=== PATIENT | male | born 1955 | race Caucasian/White ===

== ENCOUNTER 2023-11-07 16:59 | Observation (INO) | payer MEDICARE, SELFPAY ==
[2023-11-07] VITALS (10 sets, daily range): BP systolic 114–163; BP diastolic 71–121; PULSE 74–101; RESP 15–18; TEMP 36.1–36.7; O2SAT 93–98; BMI 34.8; BMI 34.7
--- NOTE | 2023-11-07 17:14 | EKG12_ITS ---
Test Reason : Blood Pressure : / mmHG Vent. Rate : 096 BPM Atrial Rate : 096 BPM P-R Int : 144 ms QRS Dur : 100 ms QT Int : 370 ms P-R-T Axes : 067 046 059 degrees QTc Int : 467 ms Normal sinus rhythm Normal ECG Confirmed by MARK CABALLERO MD ([id number]), photograph editor DAVID SOUZA ([id number]) on 11/10/2023 1:55:09 PM Referred By: Confirmed By:MARK CABALLERO MD
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
[2023-11-07] MEDS: 0.9% Normal Saline (1000mL) 1,000 ML 999 ML IV (17:43)
--- NOTE | 2023-11-07 18:19 | ED.RN ---
PT PRESENTED TO ED WITH TRANSPORT FROM [facility]. PT LIVES AT HOME AND SAYS HIS DAUGHTER COMES TO CHECK ON HIM DAILY. PT HAS BEEN SITTING IN HIS CHAIR FOR AT LEAST A WEEK IN HIS OWN FECES. GROIN AREA HAS MULTIPLES LESIONS WITH SKIN BREAKDOWN. PT HAD ASHES FROM HIS CIGARETTES ALL OVER HIS CHEST. PT HAS NOT BEEN PROPERLY CARING FOR HIMSELF AT HOME. PT STATES THAT HE IS FINE AT HOME AND DOES NOT THINK HE IS BAD OFF. PT ADVISED HE WILL BE ADMITTED AND NEEDS TO SPEAK WITH [facility]IST. WHILE ADMITTED THEY CAN DO PT FOR HIS LEG STRENGTH AND PLAN OF CARE FOR D/C. PT SAYS HE IS NOT ON ANY MEDS. WHEN ASKED IF HE WAS TAKING PREVIOUS MEDS AND JUST STOPPED, HE SAID HE USED TO TAKE BP MEDS. PT APPEARS CONFUSED AND IN DENIAL OF HIS STATE OF HEALTH AND WELLBEING.
[2023-11-07 18:35] LABS: Absolute Lymphocyte Count 1.47 X10^3/uL (0.83-4.51); Absolute Neutrophil Count 7.8 X10^3/uL (2.0-7.7); Basophil# 0.04 X10^3/uL; Basophil% 0.4 % (0-1); Eosinophil# 0.27 X10^3/uL; Eosinophils% 2.6 % (0-5); Hematocrit 49.4 % (40-54); Hemoglobin 16.5 g/dL (13.0-16.5); Lymphocyte # 1.47 X10^3/ul (0.83-4.51); Lymphocyte % 14.3 % (19-41); Mean Corp Hgb Conc 33.4 g/dL (32-36); Mean Corpuscular Hgb 30.3 pg (27.0-32.0); Mean Corpuscular Volume 90.6 fL (80-94); Mean Platelet Vol. 10.8 fl (6.2-12.0); Monocyte# 0.73 X10^3/uL; Monocyte% 7.1 % (0-10); NRBC Flagged by Analyzer 0 % (0-5); Neutrophil # 7.76 X10^3/uL (2.7-7.7); Neutrophil % 75.2 % (47-70); Platelet Count 298 K/mm3 (150-450); RBC Distribution Width CV 13.6 % (11.6-14.6); Red Blood Count 5.45 M/mm3 (4.6-6.2); White Blood Count 10.3 K/mm3 (4.4-11.0)
[2023-11-07 18:51] LABS: ALB/GLOB Ratio 0.9 RATIO (0.9-2.4); AST(SGOT) 23 U/L (15-37); Alanine Aminotransfer ALT/SGPT 32 U/L (16-61); Albumin, Serum 3.2 g/dL (3.2-5.0); Alkaline Phosphatase 74 U/L (45-117); Anion Gap 5 (5-15); BUN 17 mg/dL (7-18); BUN/Creat Ratio 28.1 RATIO (10-20); CPK Total, Creatine Kinase 123 U/L (39-308); Calcium,Total 9.2 mg/dL (8.5-10.1); Chloride 104 mmol/L (98-107); EST Glomerular Filtration Rate 141 mL/min (>60); Est Glom Filt Rate - Afr Amer 170 mL/min (>60); Estimated Creatinine Clearance 113.13 ml/min; Globulin 3.7 g/dL (2.2-4.2); Glucose 107 mg/dL (74-106); Lipase 27 U/L (13-75); Potassium 3.8 mmol/L (3.5-5.1); Protein, Total 6.9 g/dL (6.4-8.2); Sodium Level 138 mmol/L (136-145); Troponin-I HS 7 pg/mL (3.0-78.0)
[2023-11-07 18:53] LABS: Lactic Acid 1.5 mmol/L (0.4-1.9)
--- NOTE | 2023-11-07 19:25 | RAD_ITS ---
INDICATION: cough EXAMINATION/TECHNIQUE: X-RAY - XR Chest 1 View AP portable. 7:13 PM COMPARISON: No relevant prior comparison study available FINDINGS: LINES/DEVICES: None. LUNGS: No consolidation. No pneumothorax. MEDIASTINUM: Unremarkable. CARDIAC SILHOUETTE: Not enlarged. BONES AND SOFT TISSUES: No acute abnormalities. RAD/Chest 1 View (Portable) IMPRESSION: No evidence of active intrathoracic disease. Electronically Signed: Karen Cortez MD at 20:35 EDT ,
--- NOTE | 2023-11-07 19:30 | CT_ITS ---
INDICATION: weakness EXAMINATION: CT BRAIN - CT Head or Brain W/O Contrast Injection TECHNIQUE: Multiple axial images were obtained of the head without intravenous contrast. The protocol utilizes one or more of the following dose reduction techniques: automated exposure control, adjustment of mA and/or kV according to patient size,and/or use of iterative reconstruction technique. IV Contrast dosage and agent: None. RADIATION DOSAGE (If Supplied By Facility): CTDIvol = ( 44.99 ) mGy, DLP = ( 829.85 ) mGycm COMPARISON: No relevant prior comparison study available FINDINGS: BRAIN: No acute bleed. No edema. Rivera-white matter differentiation is maintained. VENTRICLES AND SULCI: Not dilated. EXTRA-AXIAL: No hemorrhage, fluid collection, or mass. CALVARIUM / SKULL BASE: Unremarkable. FACE/SINUSES: Unremarkable. SOFT TISSUES: Unremarkable. CT/Brain/Head without Contrast IMPRESSION: No acute abnormality. CT angiogram and/or MRI may be helpful to evaluate for acute infarct as clinically indicated. Electronically Signed: Karen Cortez MD at 20:19 EDT ,
[2023-11-07 20:06] LABS: Mucous, Urine 0 SEEN /hpf (<or=2+); Squamous Epithelial Cells - UA 0 SEEN /hpf (0-5); White Blood Cells 0 SEEN /hpf (0-5)
[2023-11-07 20:18] LABS: Color, Urine Straw (Yellow); Glucose, Dipstick Normal (Normal); Ketone-Dipstick 50 mg/dl (Negative); Leukocyte Esterase-Dipstick Negative /ul (Negative); Nitrite-Dipstick Negative (Negative); Occult Blood-Urine 10 /ul (Negative); Protein-Dipstick Negative (Negative); Specific Gravity, Urine 1.015 (1.002-1.030); Urine Bilirubin Dipstick Negative (Negative); Urine Clarity Clear (Clear); Urine Urobilinogen Normal (Normal)
[2023-11-07 20:37] LABS: Red Blood Cells-Urine 0-5 SEEN /hpf (0-5)
[2023-11-07 20:38] LABS: Bacteria RARE /hpf (None Seen)
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
[2023-11-07] MEDS: 0.9% Normal Saline (1000mL) 1,000 ML 70 ML IV (21:56)
[2023-11-07] MEDS: Nystatin Powder 15gm Bottle 1 APPLIC TOPICAL (23:28)
[2023-11-08] VITALS (8 sets, daily range): BP systolic 95–146; BP diastolic 55–82; PULSE 83–92; RESP 16–18; TEMP 36.3–37.2; O2SAT 91–96; BMI 34.7
[2023-11-08] MEDS: Menthol/Lanolin/Calamine/Znox 113 GM Tube 1 APPLIC TOPICAL ×3 (01:22→21:32)
[2023-11-08] MEDS: Nicotine Polacrilex 2 MG GUM PO ×4 (01:23→22:30)
[2023-11-08] MEDS: Nystatin Powder 15gm Bottle 1 APPLIC TOPICAL ×3 (05:21→21:32)
[2023-11-08] MEDS: Acetaminophen 325 MG Tablet 650 MG PO ×2 (05:25→21:32)
[2023-11-08 05:58] LABS: Absolute Lymphocyte Count 1.57 X10^3/uL (0.83-4.51); Basophil# 0.05 X10^3/uL; Basophil% 0.5 % (0-1); Eosinophil# 0.42 X10^3/uL; Eosinophils% 4.1 % (0-5); Hematocrit 48.8 % (40-54); Lymphocyte # 1.57 X10^3/ul (0.83-4.51); Lymphocyte % 15.4 % (19-41); Mean Corp Hgb Conc 32.8 g/dL (32-36); Mean Corpuscular Hgb 29.5 pg (27.0-32.0); Mean Corpuscular Volume 89.9 fL (80-94); Mean Platelet Vol. 10.7 fl (6.2-12.0); Monocyte# 1.15 X10^3/uL; Monocyte% 11.3 % (0-10); NRBC Flagged by Analyzer 0 % (0-5); Neutrophil # 6.95 X10^3/uL (2.7-7.7); Neutrophil % 68.3 % (47-70); Platelet Count 272 K/mm3 (150-450); RBC Distribution Width CV 13.7 % (11.6-14.6); RBC Distribution Width SD 44.9 fl (35.1-43.9); Red Blood Count 5.43 M/mm3 (4.6-6.2); White Blood Count 10.2 K/mm3 (4.4-11.0)
[2023-11-08 06:34] LABS: ALB/GLOB Ratio 0.9 RATIO (0.9-2.4); AST(SGOT) 24 U/L (15-37); Alanine Aminotransfer ALT/SGPT 27 U/L (16-61); Albumin, Serum 3.2 g/dL (3.2-5.0); Alkaline Phosphatase 66 U/L (45-117); Anion Gap 6 (5-15); BUN 13 mg/dL (7-18); Calcium,Total 9.1 mg/dL (8.5-10.1); Chloride 107 mmol/L (98-107); Creatinine, Serum 0.46 mg/dL (0.70-1.30); EST Glomerular Filtration Rate 191 mL/min (>60); Est Glom Filt Rate - Afr Amer 231 mL/min (>60); Estimated Creatinine Clearance 109.59 ml/min; Globulin 3.4 g/dL (2.2-4.2); Glucose 106 mg/dL (74-106); Phosphorus 3.2 mg/dL (2.5-4.9); Potassium 3.6 mmol/L (3.5-5.1); Protein, Total 6.6 g/dL (6.4-8.2); Sodium Level 137 mmol/L (136-145)
[2023-11-08] MEDS: Enoxaparin 40 MG/0.4 ML Syringe SC (08:15)
[2023-11-08] MEDS: 0.9% Normal Saline (1000mL) 1,000 ML 70 ML IV (12:09)
--- NOTE | 2023-11-08 16:48 | CT_ITS ---
STUDY: CT LUMBAR SPINE WITHOUT CONTRAST REASON FOR EXAM: Male, 68 years old. CAN''T MOVE LEGS TECHNIQUE: The patient was scanned in a multi detector CT scanner. High resolution transaxial imaging was performed. Images were obtained from T12 to S1. Sagittal and coronal images were reconstructed. Individualized dose optimization techniques were used for this CT. COMPARISON: None FINDINGS: Normal lumbar lordosis. There is no substantial scoliosis. Normal vertebrae of the lumbar spine. Possible fracture of the T10 spinous process. L1-2: There is bilateral facet arthropathy. Loss of intervertebral disc height. There is endplate spondylosis of the vertebral body. Unremarkable central canal. Unremarkable intervertebral neuroforamina. L2-3: There is bilateral facet arthropathy. Loss of intervertebral disc height. There is endplate spondylosis of the vertebral body. Posterior disc bulge causing mild narrowing of the central canal. Unremarkable intervertebral neuroforamina. L3-4: There is bilateral facet arthropathy. Loss of intervertebral disc height. There is endplate spondylosis of the vertebral body. Posterior disc bulge osteophyte complex causing severe narrowing of the central canal. Unremarkable intervertebral neuroforamina. Narrowing of the right lateral recess. L4-5: There is bilateral facet arthropathy. Loss of intervertebral disc height. There is endplate spondylosis of the vertebral body. Posterior disc bulge causing severe narrowing of the central canal. Narrowing of the intervertebral neuroforamina. L5-S1: There is bilateral facet arthropathy. Loss of intervertebral disc height. There is endplate spondylosis of the vertebral body. Unremarkable central canal. Narrowing of the intervertebral neuroforamina. Normal visualized paraspinous soft tissue structures. CT/Spine Lumbar without Contrast IMPRESSION: (NOT LISTED IN ORDER OF SIGNIFICANCE) Multilevel degenerative changes, as described above. Severe narrowing of the spinal canal at L3-4 and L4-5. Possible fracture of the T10 spinous process. Electronically Signed: Elio Mccabe MD at 18:00 EDT ,
--- NOTE | 2023-11-08 16:57 | PCM.PN.HOSP ---
Reason for Visit Reason for Visit: Weakness Subjective Subjective Patient states that progressively over the last several days prior to presentation he was developing some numbness in his left leg that was intermittent and weakness. He was indicating that if somebody moved his legs around and got them warmed up he was able to move more independently but it has been progressive loss. I did recommend we perform an MRI with and without contrast of his lumbar spine to rule out any pathology that could be causing this however the patient adamantly declined stating that he would not be able to tolerate lying still in the scanner. He did agree to a CT of his lumbar spine but we did explain that this is not optimal. Objective Data Objective Data Vital Signs: Vital Signs Temp Pulse Resp BP Pulse Ox O2 Del Method O2 Flow Rate 99.0 F 86 18 121/55 H 95 Nasal Cannula 2 11/08/23 14:01 11/08/23 14:01 11/08/23 14:01 11/08/23 14:01 11/08/23 14:01 11/08/23 14:01 11/08/23 14:01 Oxygen Flow Rate (L/min) 2 Oxygen Delivery Method Nasal Cannula Weight: 109.679 kg Body Mass Index (BMI) 34.7 Intake & Output: Intake and Output for Last 24 Hours 11/06/23 11/07/23 11/08/23 23:59 23:59 23:59 Intake Total 1000 / 1300 1695.17 / 1695.17 Output Total 400 / 400 Balance 1000 / 1300 1295.17 / 1295.17 Lab / Micro Data 11/08/23 05:28 11/08/23 05:28 Labs: Laboratory Results - last 24 hr 11/07/23 18:10: WBC 10.3, RBC 5.45, Hgb 16.5, Hct 49.4, MCV 90.6, MCH 30.3, MCHC 33.4, RDW Std Deviation 45.0 H, RDW Coeff of Annamarie 13.6, Plt Count 298, MPV 10.8, Immature Gran % (Auto) 0.400, Neut % (Auto) 75.2 H, Lymph % (Auto) 14.3 L, [place]arro % (Auto) 7.1, Eos % (Auto) 2.6, Baso % (Auto) 0.4, Absolute Neuts (auto) 7.8 H, Absolute Lymphs (auto) 1.47, Nucleated RBC % 0, Sodium 138, Potassium 3.8, Chloride 104, Carbon Dioxide 30.0, Anion Gap 5, BUN 17, Creatinine 0.60 L, Estim Creat Clear Calc 113.13, Est GFR (MDRD) Af Amer 170, Est GFR (MDRD) Non-Af 141, BUN/Creatinine Ratio 28.1 H, Glucose 107 H, Lactic Acid 1.5, Calcium 9.2, Total Bilirubin 0.50, AST 23, ALT 32, Alkaline Phosphatase 74, Total Creatine Kinase 123, Troponin I High Sens 7, Total Protein 6.9, Albumin 3.2, Globulin 3.7, Albumin/Globulin Ratio 0.9, Lipase 27, TSH 2.550 11/07/23 19:57: Urine Color Straw, Urine Clarity Clear, Urine pH 6.0, Ur Specific [place] 1.015, Urine Protein Negative, Urine Glucose (UA) Normal, Urine Ketones 50 H, Urine Occult Blood 10 H, Urine Nitrite Negative, Urine Bilirubin Negative, Urine Urobilinogen Normal, Ur Leukocyte Esterase Negative, Urine RBC 0-5 SEEN, Urine WBC 0 SEEN, Ur Squamous Epith Cells 0 SEEN, Urine Bacteria RARE, Urine Mucus 0 SEEN 11/08/23 05:28: WBC 10.2, RBC 5.43, Hgb 16.0, Hct 48.8, MCV 89.9, MCH 29.5, MCHC 32.8, RDW Std Deviation 44.9 H, RDW Coeff of Annamarie 13.7, Plt Count 272, MPV 10.7, Immature Gran % (Auto) 0.400, Neut % (Auto) 68.3, Lymph % (Auto) 15.4 L, Navarro % (Auto) 11.3 H, Eos % (Auto) 4.1, Baso % (Auto) 0.5, Absolute Neuts (auto) 7.0, Absolute Lymphs (auto) 1.57, Nucleated RBC % 0, Sodium 137, Potassium 3.6, Chloride 107, Carbon Dioxide 24.0, Anion Gap 6, BUN 13, Creatinine 0.46 L, Estim Creat Clear Calc 109.59, Est GFR (MDRD) Af Amer 231, Est GFR (MDRD) Non-Af 191, BUN/Creatinine Ratio 28.0 H, Glucose 106, Calcium 9.1, Phosphorus 3.2, Magnesium 2.0, Total Bilirubin 0.50, AST 24, ALT 27, Alkaline Phosphatase 66, Total Protein 6.6, Albumin 3.2, Globulin 3.4, Albumin/Globulin Ratio 0.9 Micro: Microbiology 11/07/23 18:10 Mucosa - Nose SARS-CoV-2, Influenza & RSV (PCR) - Final Radiography Diagnostic Testing: Radiology Impression Chest X-Ray 11/07/23 19:25 IMPRESSION: No evidence of active intrathoracic disease. Electronically Signed: Karen Cortez MD at 20:35 EDT , Brain CT 11/07/23 19:30 IMPRESSION: No acute abnormality. CT angiogram and/or MRI may be helpful to evaluate for acute infarct as clinically indicated. Electronically Signed: Karen Cortez MD at 20:19 EDT , Physical Exam Const alert, oriented x3, no apparent distress and well nourished; Negative for average body habitus or healthy appearing Constitutional Narrative: Obese, upper middle-aged, somewhat disheveled, white male, sitting up in bed, currently appears comfortable, watching television, does not appear toxic, older than stated age HEENT head/scalp atraumatic and moist oral mucous membranes HEENT Narrative: Dentition is poor, Mallampati is 3, no thrush Head and Scalp: normocephalic Resp normal respiratory effort, no retractions and no use of accessory muscles Resp Narrative: Diffusely diminished with few scattered end expiratory wheezes but otherwise clear Auscultation: wheezes; Negative for rales or rhonchi Cardio regular rate, regular rhythm, S1 normal heart sound, S2 normal heart sound, no murmurs, no rub, no gallops and no clicks GI normal to inspection, nondistended, normoactive bowel sounds, soft to palpation and non-tender GI Narrative: Large protuberant abdomen Extremity no clubbing, cyanosis or edema Neuro oriented x3 Neuro Narrative: Difficulty moving lower extremities bilaterally, patellar reflexes are 2+ bilaterally, sensation is normal bilateral lower extremities Speech: speech normal Psych affect normal Psych Narrative: Very pleasant, interacts appropriately Assessment & Plan Assessment/Plan (1) Ambulatory dysfunction: (2) Lower extremity weakness: (3) Paresthesias: PLAN: Plan Lower extremity weakness and paresthesias with the inability ambulate -Recommend an MRI stat be performed however patient declined and stated he was not able to lie in the scanner -Patient aware that this is the test of choice for diagnosing lumbar pathology but states that he still will not be able to do it -Is agreeable to set CT of his lumbar spine which we subsequently ordered -PT/OT consultation -Check B12 and folate -Ultimately will need placement will consult social work/case management for assistance with discharge planning -Patient will require pre-CERT prior to discharge Stage I pressure ulcer -Wound care consultation -Try to optimize nutrition Hypoxia -Unclear if this is acute or chronic -Patient does not wear supplemental oxygen at home but also does not see a doctor -Does smoke so may have COPD -Add DuoNebs -As needed albuterol -Continue I-S and Acapella -Patient will need outpatient pulmonary follow-up after discharge Intertriginous ameya -Continue nystatin powder Tobacco abuse -Smokes about 1 pack of cigarettes daily -Encouraged cessation -Patient is using nicotine gum Osteoarthritis -Continue as needed Tylenol Obesity -BMI 34.7 -Recommend weight loss -Complicates treatment, prognosis, outcomes CODE STATUS -Full code Charges/Coding Visit Charges Inpatient E&M: 60126 Subs Hosp L2
--- NOTE | 2023-11-08 18:58 | PCM.HOSP.N ---
Hospitalist Note CT shows severe narrowing in central canal of lumbar spine. Consult ortho spine.
--- NOTE | 2023-11-08 19:14 | PCM.HOSP.N ---
Hospitalist Note Talked to Dr. Echevarria who will see him in consult tomorrow afternoon. He said it is imperative to get MRI now and would like Lumbar and cervical without contrast. Since pt unable to tolerate he suggested that we have it done with anesthesia. Okay to do tomorrow per discussion with Dr. Echevarria. Orders placed for stat MRI tomorrow am and requested sedation via anesthesia in comments text.
[2023-11-08] MEDS: Ipratropium/Albuterol Sulfate 3 ML AMPUL.NEB INHALATION (19:41)
--- NOTE | 2023-11-08 21:18 | PCM.HOSP.N ---
Hospitalist Note Saw patient at bedside this evening to discuss CT lumbar spine findings and further evaluate him. Patient noted that he tolerated the CT scan without issue and feels similar to earlier today. He continues to have some bilateral lower extremity weakness. On discussion about bowel and bladder incontinence, he reports some difficulty with controlling his bowels over the past few weeks but states that he has had good sensation in the area. He does report some urinary incontinence but states this has been going on for months to years and he attributes this to prostate issues. He denies any pain or discomfort in the low back or perineal area. On exam, patient does have some hyperreflexia noted in the right knee. Negative clonus in the feet bilaterally. He is able to move both legs but has significant difficulty with lifting either leg off the bed. He denies any sensory changes in the legs bilaterally. Noted to him that we talked with Dr. Echevarria with orthopedic spine surgery and he strongly recommended obtaining an MRI of the cervical and lumbar regions under sedation if needed. Patient was very hesitant to have an MRI done. Noted that he would not want to have a spinal surgical procedure done under any circumstances. I noted to him that if he did have a degree of cauda equina syndrome this would be an indication for surgery and could lead to permanent neurologic damage. However, he reiterated that he would not want surgery even if this was the case. Noted that we also could find pathology on MRI that could be managed nonsurgically with improvement in his functional status. MRI order will remain in place but patient noted that he may change his mind and not want to have it done tomorrow. Will follow-up in the morning.
[2023-11-08] MEDS: MELATONIN 3 MG TABLET PO (21:32)
[2023-11-09] VITALS (8 sets, daily range): BP systolic 129–165; BP diastolic 53–84; PULSE 80–92; RESP 16–18; TEMP 36.5–37.1; O2SAT 92–97; BMI 36.3
[2023-11-09] MEDS: Nystatin Powder 15gm Bottle 1 APPLIC TOPICAL ×3 (05:57→21:08)
[2023-11-09 06:38] LABS: Hematocrit 48.5 % (40-54); Hemoglobin 15.6 g/dL (13.0-16.5); Mean Corp Hgb Conc 32.2 g/dL (32-36); Mean Corpuscular Hgb 29.4 pg (27.0-32.0); Mean Corpuscular Volume 91.3 fL (80-94); Mean Platelet Vol. 10.6 fl (6.2-12.0); Platelet Count 275 K/mm3 (150-450); RBC Distribution Width CV 13.8 % (11.6-14.6); RBC Distribution Width SD 46.6 fl (35.1-43.9); Red Blood Count 5.31 M/mm3 (4.6-6.2); White Blood Count 8.6 K/mm3 (4.4-11.0)
[2023-11-09] MEDS: Nicotine Polacrilex 2 MG GUM PO ×2 (06:49→16:11)
--- NOTE | 2023-11-09 06:54 | NURSING ---
this rn tried to explain the importance of having the MRI done and how it can benefit him in getting better. Patient refused MRI, saying he didn't want the operation. This RN tried to explain that the MRI was not the operation and they wouldn't do the operation this morning. Patient didn't want it even after I explained he would be asleep and that they would be able to look at non surgical interventions. Patient wants to do more research. This Rn tried to approach the patient twice this am, both with a refusal. He knows the doctors are wanting him to do it, but he doesn't want to do it.
[2023-11-09 07:17] LABS: Anion Gap 6 (5-15); BUN 10 mg/dL (7-18); BUN/Creat Ratio 20.2 RATIO (10-20); Calcium,Total 9.6 mg/dL (8.5-10.1); Chloride 105 mmol/L (98-107); Creatinine, Serum 0.49 mg/dL (0.70-1.30); EST Glomerular Filtration Rate 178 mL/min (>60); Est Glom Filt Rate - Afr Amer 215 mL/min (>60); Glucose 113 mg/dL (74-106); Phosphorus 3.5 mg/dL (2.5-4.9); Potassium 3.9 mmol/L (3.5-5.1); Sodium Level 139 mmol/L (136-145)
[2023-11-09] MEDS: Ipratropium/Albuterol Sulfate 3 ML AMPUL.NEB INHALATION ×3 (07:30→19:36)
[2023-11-09 08:02] LABS: Vitamin B12 450 pg/mL (211-911)
--- NOTE | 2023-11-09 08:45 | WOUNDNOTE ---
In to assess the coccyx/buttocks. Pt refusing to turn at this time. pt states he is waiting on therapy to see him and wants to get out. pt has been refusing the MRI. will try to assess buttocks when patient gets up with therapy.
--- NOTE | 2023-11-09 08:55 | NURSING ---
in to see pt. pt states he is not having the MRI, would like to eat breakfast. voices frustrations about illness. Both MRI and Dr. Chandler notified pt is refusing to have MRI done.
--- NOTE | 2023-11-09 10:30 | CASEMGMT ---
Discharge Planning A list of?SNF providers including quality and resource use data and consistent with the patient's preferred geographic region, medical needs, and insurance network was created in [employer] [facility].? This list was provided to the SW. Cary Barrera Discharge Planning Asst.
--- NOTE | 2023-11-09 13:15 | CASEMGMT ---
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 Pt states he ambulates 20' at home. Pt states this spring he was very active in the yard, then noticed at the end of summer that he was less active and that he had become scared to fall and therefore was doing less. Pt states it was cyclical and led to the point that pt was not moving beyond getting in his van to drive. Pt reports that he is claustrophobic and also fearful of anesthesia and does not want an MRI for diagnostics. Pt states that he feels he did well with therapy and just wants additional therapy. A list of SNF providers including quality and resource use data and consistent with the patient?s preferred geographic region, medical needs, and insurance network were provided from the [employer] Guide. SW will follow up with pt for choices this afternoon. BREANNE Thompson
--- NOTE | 2023-11-09 13:59 | CASEMGMT ---
Met with patient to complete JARA form. JARA form explained to patient. Pt requested a copy before he would sign. Copy provided. This marketing underwriter returned to room several more times and pt would not sign. He wanted to eat breakfast, lunch, and call his insurance company. Pt advised to ask for DC [employer] olericulture professor CM if he should have questions. Original form placed in pt?s chart. Cary Barrera, Discharge Planning Asst
--- NOTE | 2023-11-09 14:42 | PCM.PROGNOTE ---
Subjective Subjective Patient seen and examined. He had no active complaints. He said pain was much better. HE is still refusing the MRI. He says he thinks the xray and CT of the lumbar spine are equivalent to the MRI, and says he thinks working with PT/OT is all he needs. HE denies any numbness, tingling in his lower extremities, any fecal or urinary incontinence. Review of systems is otherwise negative. He has remained hemodynamically stable. He is on 1.5L of oxygen. Objective Data Objective Data Vital Signs: Vital Signs Temp Pulse Resp BP Pulse Ox O2 Del Method O2 Flow Rate 97.9 F 88 16 146/53 H 94 Nasal Cannula 1.5 11/09/23 08:10 11/09/23 13:02 11/09/23 13:02 11/09/23 08:10 11/09/23 08:10 11/09/23 14:35 11/09/23 14:35 Oxygen Flow Rate (L/min) 1.5 Oxygen Delivery Method Nasal Cannula Weight: 252 lb 13.923 oz Body Mass Index (BMI) 36.3 Intake & Output: Intake and Output for Last 24 Hours 11/07/23 11/08/23 11/09/23 23:59 23:59 23:59 Intake Total 1000 / 1300 2249.84 / 2499.84 830 / 830 Output Total 1000 / 1650 1750 / 1750 Balance 1000 / 1300 1249.84 / 849.84 -920 / -920 Lab / Micro Data 11/09/23 06:26 11/09/23 06:26 Labs: Laboratory Results - last 24 hr 11/08/23 05:28: Folate 9.90 11/09/23 06:26: WBC 8.6, RBC 5.31, Hgb 15.6, Hct 48.5, MCV 91.3, MCH 29.4, MCHC 32.2, RDW Std Deviation 46.6 H, RDW Coeff of Annamarie 13.8, Plt Count 275, MPV 10.6, Sodium 139, Potassium 3.9, Chloride 105, Carbon Dioxide 28.0, Anion Gap 6, BUN 10, Creatinine 0.49 L, Estim Creat Clear Calc 112.10, Est GFR (MDRD) Af Amer 215, Est GFR (MDRD) Non-Af 178, BUN/Creatinine Ratio 20.2 H, Glucose 113 H, Calcium 9.6, Phosphorus 3.5, Magnesium 2.0, Vitamin B12 450 Micro: Microbiology 11/07/23 18:10 Mucosa - Nose SARS-CoV-2, Influenza & RSV (PCR) - Final Radiography Diagnostic Testing: Radiology Impression Lumbar Spine CT 11/08/23 16:48 IMPRESSION: (NOT LISTED IN ORDER OF SIGNIFICANCE) Multilevel degenerative changes, as described above. Severe narrowing of the spinal canal at L3-4 and L4-5. Possible fracture of the T10 spinous process. Electronically Signed: Elio Mccabe MD at 18:00 EDT Reading Location ID and State: [facility] / [place] , Service support , Physical Exam Const alert, oriented x3, no apparent distress and well nourished Constitutional Narrative: obese General Appearance: cooperative HEENT normocephalic, head/scalp atraumatic, moist oral mucous membranes and oropharynx normal Eyes PERRL and EOMs intact bilaterally Neck no lymphadenopathy, supple and no JVD Lymph Lymphatic: no lymphadenopathy noted and no lymphedema noted Resp Resp Narrative: mildly diminished breath sounds bibasally, no wheezes or crackles. On 1.5L of oxygen by nasal canula Cardio regular rate, regular rhythm, S1 normal heart sound, S2 normal heart sound and no murmurs GI normal to inspection, nondistended, normoactive bowel sounds, soft to palpation, non-tender and non-distended Extremity normal capillary refill, no clubbing, cyanosis or edema and no calf tenderness General Extremity: no tenderness to palpation of joints or extremities Skin General Skin Exam: no breakdown Neuro CN's II-XII intact bilaterally, no focal motor deficits, no sensory deficits noted and deep tendon reflexes 2+ bilaterally Motor Exam: strength 5/5 throughout and general weakness Psych thought process normal, cooperative and affect normal Appearance: appropriate Assessment & Plan Assessment/Plan (1) Lower extremity weakness: (2) Paresthesias: PLAN: Plan #Debility due to lower extremity weakness due to severe spinal stenosis Still complains of lower extremity weakness. However he denies any numbness or tingling or any urinary or fecal incontinence. CT of the lumbar spine showed severe lumbar stenosis. MRI ordered but patient has adamantly refused and says he thinks the CT and the x-ray are adequate. Spine surgery consulted. Awaiting review. PT OT on board. Fall precautions. P.o. Tylenol and hydrocodone as well as IV morphine as needed for pain. #Stage I pressure ulcer: Wound care on board. PT OT on board. #Hypoxia: Patient on 1.5 L of oxygen. He likely has underlying COPD and he does have a long history of smoking. Breathing treatments bronchodilators. Titrate oxygen to maintain saturation above 90%. # Nicotine dependence: Smokes 1 pack daily. Counseled to quit. Nicotine patch and nicotine gum. #Osteoarthritis: On Tylenol as needed #Obesity: BMI is 34.7. Complicates acute care, expected recovery and prognosis. DVT prophylaxis: Lovenox Charges/Coding Visit Charges Inpatient E&M: 72431 Subs Hosp L2
--- NOTE | 2023-11-09 15:07 | CASEMGMT ---
Social Work- SW met with pt to f/u on SNF choices. Pt states that he was napping and did not select facilities yet. Pt will look and SW will f/u. Therapy came in to work with pt as SW was leaving. BREANNE Thompson
--- NOTE | 2023-11-09 15:13 | CON.PCM.OR_ITS ---
HPI Consult Data Date of Consult: 11/09/23 HPI Narrative HPI Narrative: WINIFRED BLAKELY, is a 68 M who presents with past medical history of obesity; with BMI of 34.8 this admission, chronic tobacco abuse along with a history of avoiding medical attention as he claims he has no PCP and has not a doctor for years who presents [facility] ER complaining of being unable to get out of his chair for [address] scan done shows severe narrowing of the spinal canal at L3-4 and L4-5. MRI is indicated to further assess the stenosis and for possible cervical myelopathy and/or cauda equina. Patient refuses MRI saying that xrays and CT scans are equivalent to the MRI. Discussed why the MRI is recommended, patient said that he will research cauda equina but in the mean time does not want the MRI and says that any surgical recommendations won't work. [facility] Medical History (Updated 11/09/23 @ 15:41 by LILLY Bernard) Smoker Depression Hypertension Home Medications ?Medication ?Instructions ?Recorded ?Last Taken ?Type NK 11/07/23 Unknown History Allergy/AdvReac Type Severity Reaction Status Date / Time No Known Allergies Allergy Verified 11/07/23 17:01 Social History Smoking Status: Current every day smoker tobacco type: cigarettes Vital Signs Vital Signs Vital Signs: 11/08/23 19:46 11/08/23 19:46 11/08/23 21:33 Temperature 98 F Temperature Source Oral Pulse Rate 83 92 Pulse Strength Respiratory Rate 16 16 Respiratory Effort Respiratory Depth Respiratory Pattern Normal Blood Pressure 146/72 H Blood Pressure Mean 96 Blood Pressure Source Monitor Blood Pressure Position Semi-Fowlers Blood Pressure Location Right Arm Pulse Ox 94 96 Oxygen Delivery Method Nasal Cannula Nasal Cannula Oxygen Flow Rate (L/min) 2 2 11/08/23 21:38 11/08/23 22:00 11/09/23 00:40 Temperature 97.7 F L Temperature Source Oral Pulse Rate 85 Pulse Strength Normal (2+) Respiratory Rate 16 Respiratory Effort Normal Non-Labored Respiratory Depth Normal Respiratory Pattern Normal Blood Pressure 129/73 H Blood Pressure Mean 91 Blood Pressure Source Monitor Blood Pressure Position Semi-Fowlers Blood Pressure Location Left Arm Pulse Ox 95 Oxygen Delivery Method Nasal Cannula Nasal Cannula Oxygen Flow Rate (L/min) 2 2 11/09/23 05:58 11/09/23 07:30 11/09/23 07:30 Temperature 97.7 F L Temperature Source Oral Pulse Rate 80 86 Pulse Strength Respiratory Rate 16 18 Respiratory Effort Respiratory Depth Respiratory Pattern Normal Blood Pressure 136/76 H Blood Pressure Mean 96 Blood Pressure Source Monitor Blood Pressure Position Right Lateral Blood Pressure Location Left Arm Pulse Ox 97 95 Oxygen Delivery Method Nasal Cannula Nasal Cannula Oxygen Flow Rate (L/min) 2 1 11/09/23 08:10 11/09/23 08:19 11/09/23 10:46 Temperature 97.9 F Temperature Source Oral Pulse Rate 92 Pulse Strength Normal (2+) Respiratory Rate 18 Respiratory Effort Normal Non-Labored Respiratory Depth Normal Respiratory Pattern Normal Blood Pressure 146/53 H Blood Pressure Mean 84 Blood Pressure Source Monitor Blood Pressure Position Semi-Fowlers Blood Pressure Location Right Arm Pulse Ox 94 Oxygen Delivery Method Room Air Nasal Cannula Oxygen Flow Rate (L/min) 2 11/09/23 13:02 11/09/23 13:02 11/09/23 14:35 Temperature Temperature Source Pulse Rate 88 Pulse Strength Respiratory Rate 16 Respiratory Effort Normal Respiratory Depth Respiratory Pattern Normal Blood Pressure Blood Pressure Mean Blood Pressure Source Blood Pressure Position Blood Pressure Location Pulse Ox Oxygen Delivery Method Nasal Cannula Oxygen Flow Rate (L/min) 1 1.5 11/09/23 14:43 Temperature 98.2 F Temperature Source Oral Pulse Rate 90 Pulse Strength Respiratory Rate 17 Respiratory Effort Respiratory Depth Respiratory Pattern Blood Pressure 165/75 H Blood Pressure Mean 105 Blood Pressure Source Monitor Blood Pressure Position Semi-Fowlers Blood Pressure Location Right Arm Pulse Ox 92 Oxygen Delivery Method Nasal Cannula Oxygen Flow Rate (L/min) 1.5 Weight Weight: 252 lb 13.923 oz Body Mass Index (BMI) 36.3 Physical Exam Const alert and oriented x3 General Appearance: cooperative Orientation / Consciousness: awake, oriented to person, oriented to place and oriented to time Nutritional Appearance: obese Back/Spine Back/Spine Narrative: Neurological exam of the lower extremities shows 4 power with plantar flexion and 5 power with dorsiflexion. Patient unable to lift legs off of bed due to weakness, denies pain with movement. Upper extremity strength shows patient unable to extend fingers in his bilateral hands, other muscle groups normal. Pablito's positive bilaterally. Ill sustained clonus bilaterally. Patient unable to lean forward to check for lumbar midline or paraspinal tenderness but says that he doesn't have back pain. No cervical midline or paraspinal tenderness. Patient says compared to his upper extremities, his lower extremities does have some slight numbness but says that it is equal bilaterally. Lab / Micro Data 11/09/23 06:26 11/09/23 06:26 Labs: Laboratory Results - last 24 hr 11/08/23 05:28: Folate 9.90 11/09/23 06:26: WBC 8.6, RBC 5.31, Hgb 15.6, Hct 48.5, MCV 91.3, MCH 29.4, MCHC 32.2, RDW Std Deviation 46.6 H, RDW Coeff of Annamarie 13.8, Plt Count 275, MPV 10.6, Sodium 139, Potassium 3.9, Chloride 105, Carbon Dioxide 28.0, Anion Gap 6, BUN 10, Creatinine 0.49 L, Estim Creat Clear Calc 112.10, Est GFR (MDRD) Af Amer 215, Est GFR (MDRD) Non-Af 178, BUN/Creatinine Ratio 20.2 H, Glucose 113 H, Calcium 9.6, Phosphorus 3.5, Magnesium 2.0, Vitamin B12 450 Imaging Radiology Impression Lumbar Spine CT 11/08/23 16:48 IMPRESSION: (NOT LISTED IN ORDER OF SIGNIFICANCE) Multilevel degenerative changes, as described above. Severe narrowing of the spinal canal at L3-4 and L4-5. Possible fracture of the T10 spinous process. Electronically Signed: Elio Mccabe MD at 18:00 EDT Reading Location ID and State: [facility] / [place] , Service support , Assessment & Plan Assessment/Plan (1) Cervical myelopathy: (2) Paresthesias: (3) Lower extremity weakness: QUALIFIERS: Laterality: bilateral Qualified Code(s): R29.898 - Other symptoms and signs involving the musculoskeletal system PLAN: Plan Unfortunately at this time the patient is continuing to refuse MRI. Explained to the patient that given his findings of decreased finger strength and positive Pablito's test, cervical myopathy is a concern and that an MRI should be done to further assess. Says that he will look up what cervical myelopathy is and do his own research on it. Patient feels that with PT and OT only he should be able to regain his strength. At this time, a cervical MRI is preferred over lumbar to assess for cervical myelopathy. Explained that this is a progressive issue that doesn't improve on its own. Patient understands. He wishes to do his own research for it and asks if we can just do more CT scans or xrays. Explained that the MRI will show us the best imaging to see if his spinal cord is being compressed. He continues to decline the MRI at this time. No surgical recommendations can be made at this time with no MRI. Discussed physical exam findings with Dr. Ehcevarria who agrees.
[2023-11-09] MEDS: Menthol/Lanolin/Calamine/Znox 113 GM Tube 1 APPLIC TOPICAL (21:08)
[2023-11-10] VITALS (7 sets, daily range): BP systolic 135–148; BP diastolic 65–81; PULSE 67–89; RESP 16–18; TEMP 36.4–36.7; O2SAT 93–98; BMI 36.3
[2023-11-10] MEDS: Ipratropium/Albuterol Sulfate 3 ML AMPUL.NEB INHALATION ×3 (07:02→19:39)
[2023-11-10 08:24] LABS: Absolute Lymphocyte Count 1.56 X10^3/uL (0.83-4.51); Absolute Neutrophil Count 4.7 X10^3/uL (2.0-7.7); Basophil# 0.04 X10^3/uL; Basophil% 0.5 % (0-1); Eosinophil# 0.46 X10^3/uL; Hematocrit 47.2 % (40-54); Hemoglobin 15.5 g/dL (13.0-16.5); Lymphocyte # 1.56 X10^3/ul (0.83-4.51); Lymphocyte % 20.4 % (19-41); Mean Corp Hgb Conc 32.8 g/dL (32-36); Mean Corpuscular Hgb 29.6 pg (27.0-32.0); Mean Corpuscular Volume 90.2 fL (80-94); Mean Platelet Vol. 10.4 fl (6.2-12.0); Monocyte# 0.88 X10^3/uL; Monocyte% 11.5 % (0-10); NRBC Flagged by Analyzer 0 % (0-5); Neutrophil # 4.66 X10^3/uL (2.7-7.7); Neutrophil % 61.2 % (47-70); Platelet Count 272 K/mm3 (150-450); RBC Distribution Width CV 13.8 % (11.6-14.6); RBC Distribution Width SD 45.6 fl (35.1-43.9); Red Blood Count 5.23 M/mm3 (4.6-6.2); White Blood Count 7.6 K/mm3 (4.4-11.0)
[2023-11-10 08:47] LABS: Anion Gap 3 (5-15); BUN 11 mg/dL (7-18); BUN/Creat Ratio 19.6 RATIO (10-20); Calcium,Total 9.6 mg/dL (8.5-10.1); Chloride 105 mmol/L (98-107); Creatinine, Serum 0.56 mg/dL (0.70-1.30); EST Glomerular Filtration Rate 154 mL/min (>60); Est Glom Filt Rate - Afr Amer 186 mL/min (>60); Estimated Creatinine Clearance 112.15 ml/min; Glucose 114 mg/dL (74-106); Potassium 3.7 mmol/L (3.5-5.1); Sodium Level 138 mmol/L (136-145)
[2023-11-10] MEDS: Menthol/Lanolin/Calamine/Znox 113 GM Tube 1 APPLIC TOPICAL ×2 (08:47→22:52)
[2023-11-10] MEDS: Nicotine Polacrilex 2 MG GUM PO ×2 (09:54→16:10)
--- NOTE | 2023-11-10 10:38 | CASEMGMT ---
Addendum entered by Latisha Hopkins 11/10/23 13:01: Pt has acceptance at [facility]; pending precert. BREANNE Thompson Original Note: Social Work- SW met with pt to f/u on SNF list. Pt selects [facility] as [facility]. Pt reports that it is near his dtr and he has a neighbor who is there and recommended it. Pt showed SW that he has been stretching feet and lifting a water bottle for arm strengthening. Pt reports that he is looking forward to having continued therapy at d/c. BREANNE Thompson
--- NOTE | 2023-11-10 11:14 | CASEMGMT ---
Addendum entered by Cary Barrera 11/10/23 12:53: [facility] has accepted and will begin precert. Cary Barrera DC Planning Asst. Original Note: Discharge Planning Referral sent to [facility] via [facility]. Cary Barrera DC Planinng Asst.
--- NOTE | 2023-11-10 11:28 | WOUNDNOTE ---
wound photo: right mid back
--- NOTE | 2023-11-10 12:58 | CHAPLAIN ---
Type of Pastoral Visit _x__ Initial Visit ___ Follow-up Visit ___ On-call Visit ___ General Patient Visit ___ Spiritual Assessment ___ Family Conference ___ Bereavement ___ Rapid Response ___ Code Blue ___ Other (describe below) Pastoral Care Referral From _x__ Patient ___ Family ___ Nurse ___ Physician ___ Cook Helper Juice ___ Crane Follower ___ Other (describe below) Sacrament/Intervention _x__ Active listening ___ Anointing ___ Evangelical ___ Bereavement ___ Communion _x__ Paula exploration ___ _x__ Life review _x__ Prayer ___ Reconciliation ___ Sacrament of Sick _x__ Supportive presence ___ Wedding ___ Other (describe below) Pastoral Comments patient is welcoming and describes his weakness and what he thinks about its cause; pt is a tour bus driver for the [employer] and recognizes the new limitations he has; pt speaks of neighbors being his best support but later admits that he has a daughter; pt is expected to go to SNF for rehab and he appears to be accepting and hopeful about it; pt talks of having paula in God for what happens and he welcomes a prayer
--- NOTE | 2023-11-10 13:56 | PN_ITS ---
Subjective Subjective Patient seen and examined. He had no complaints today. He said he was able to walk a bit with therapy yesterday. Patient refused the MRI of the lumbar spine ordered yesterday as he said he did not think it was necessary. Patient is also refusing Lovenox shots for DVT prophylaxis as he states he does not think it is necessary. He tells me today that he would prefer to drink lemon juice as Rivas also prevents blood clots. He is awaiting placement. Review of systems otherwise negative. He has remained hemodynamically stable. Objective Data Objective Data Vital Signs: Vital Signs Temp Pulse Resp BP Pulse Ox O2 Del Method O2 Flow Rate 98.1 F 89 18 135/65 H 93 Nasal Cannula 2 11/10/23 08:35 11/10/23 08:35 11/10/23 08:35 11/10/23 08:35 11/10/23 08:35 11/10/23 08:40 11/10/23 08:40 Oxygen Flow Rate (L/min) 2 Oxygen Delivery Method Nasal Cannula Weight: 253 lb 1.451 oz Body Mass Index (BMI) 36.3 Intake & Output: Intake and Output for Last 24 Hours 11/08/23 11/09/23 11/10/23 23:59 23:59 23:59 Intake Total 2249.84 / 2499.84 1660 / 1660 400 / 400 Output Total 1000 / 1650 2775 / 2775 1500 / 1500 Balance 1249.84 / 849.84 -1115 / -1115 -1100 / -1100 Lab / Micro Data 11/10/23 08:13 11/10/23 08:13 Labs: Laboratory Results - last 24 hr 11/10/23 08:13: WBC 7.6, RBC 5.23, Hgb 15.5, Hct 47.2, MCV 90.2, MCH 29.6, MCHC 32.8, RDW Std Deviation 45.6 H, RDW Coeff of Annamarie 13.8, Plt Count 272, MPV 10.4, Immature Gran % (Auto) 0.400, Neut % (Auto) 61.2, Lymph % (Auto) 20.4, [place] % (Auto) 11.5 H, Eos % (Auto) 6.0 H, Baso % (Auto) 0.5, Absolute Neuts (auto) 4.7, Absolute Lymphs (auto) 1.56, Nucleated RBC % 0, Sodium 138, Potassium 3.7, Chloride 105, Carbon Dioxide 29.0, Anion Gap 3 L, BUN 11, Creatinine 0.56 L, Estim Creat Clear Calc 112.15, Est GFR (MDRD) Af Amer 186, Est GFR (MDRD) Non-Af 154, BUN/Creatinine Ratio 19.6, Glucose 114 H, Calcium 9.6 Micro: Microbiology 11/07/23 18:10 Mucosa - Nose SARS-CoV-2, Influenza & RSV (PCR) - Final Physical Exam Const alert, oriented x3, no apparent distress and well nourished Constitutional Narrative: obese General Appearance: cooperative HEENT normocephalic, head/scalp atraumatic, hearing grossly normal bilaterally, moist oral mucous membranes and oropharynx normal Eyes PERRL and EOMs intact bilaterally Neck no lymphadenopathy, supple and no JVD Lymph Lymphatic: no lymphadenopathy noted and no lymphedema noted Resp normal respiratory effort, no retractions and no use of accessory muscles Resp Narrative: mildly diminished breath sounds bibasally, no wheezes or crackles. On 2L of oxygen by nasal canula Cardio regular rate, regular rhythm, S1 normal heart sound, S2 normal heart sound, no murmurs and no rub GI normal to inspection, nondistended, normoactive bowel sounds, soft to palpation, non-tender and non-distended GI Narrative: obese abdomen Extremity normal to inspection, full ROM, normal capillary refill, no clubbing, cyanosis or edema and no calf tenderness General Extremity: no tenderness to palpation of joints or extremities Skin General Skin Exam: no breakdown Neuro oriented x3, CN's II-XII intact bilaterally, moves all extremities, no focal motor deficits, no sensory deficits noted and deep tendon reflexes 2+ bilaterally Sensorium / Orientation: awake, alert, oriented to person, oriented to place and oriented to time Speech: speech normal Motor Exam: general weakness Psych thought process normal, cooperative and affect normal Appearance: appropriate Assessment & Plan Assessment/Plan (1) Lower extremity weakness: QUALIFIERS: Laterality: bilateral Qualified Code(s): R29.898 - Other symptoms and signs involving the musculoskeletal system (2) Paresthesias: PLAN: Plan #Debility due to lower extremity weakness due to severe spinal stenosis * Still complains of lower extremity weakness. Still denies any numbness or tingling or any urinary or fecal incontinence. * CT of the lumbar spine showed severe lumbar stenosis. MRI ordered but patient has adamantly refused and says he thinks the CT and the x-ray are adequate. * Spine surgery consulted. Spine surgery did see patient yesterday and per their documentation counseled patient that there were concerned about cervical myelopathy and that an MRI would be beneficial. Patient still refused. * Patient informed of the orthospine PA that he wished to do his own research for its and preferred to do more CT scans or x-rays. No surgical recommendations can therefore be made at this time without an MRI. * PT OT on board. Fall precautions. * P.o. Tylenol and hydrocodone as well as IV morphine as needed for pain. #Stage I pressure ulcer: Wound care on board. PT OT on board. #Hypoxia: * Patient on 2 L of oxygen today. * He likely has underlying COPD and he does have a long history of smoking. * Breathing treatments bronchodilators. * Titrate oxygen to maintain saturation above 90%. * # Nicotine dependence: Smokes 1 pack daily. Counseled to quit. Nicotine patch and nicotine gum. #Osteoarthritis: On Tylenol as needed #Obesity: BMI is 34.7. Complicates acute care, expected recovery and prognosis. DVT prophylaxis: Lovenox. * Patient refusing Lovenox and states he wants an oral pill for DVT prophylaxis. * Patient counseled that Lovenox or heparin are the preferred modalities for DVT prophylaxis in the hospital. He was counseled that the Lovenox is only 1 shots daily and like the heparin which is 3 times daily. * Patient states he would prefer to take lemon because his research shows that lemon prevents DVT. * I counseled him that I was not aware of this information but it would be beneficial for him to take the Lovenox for DVT prophylaxis. Patient states he is not willing to think about it. Disposition: awaiting placement. Charges/Coding Visit Charges Inpatient E&M: 02916 Subs Hosp L2
[2023-11-10] MEDS: Nystatin Powder 15gm Bottle 1 APPLIC TOPICAL ×2 (14:22→22:53)
[2023-11-11] MEDS: MELATONIN 3 MG TABLET PO (00:24)
[2023-11-11] MEDS: Nicotine Polacrilex 2 MG GUM PO (00:24)
[2023-11-11 05:16] VITALS: BP 149/76; PULSE 74; RESP 18; TEMP 37.1; O2SAT 98
[2023-11-11] MEDS: Nystatin Powder 15gm Bottle 1 APPLIC TOPICAL (05:20)
[2023-11-11 06:00] VITALS: BMI 36.3
[2023-11-11] MEDS: Ipratropium/Albuterol Sulfate 3 ML AMPUL.NEB INHALATION (07:22)
[2023-11-11 07:23] VITALS: PULSE 74; RESP 18; O2SAT 94
[2023-11-11 07:25] LABS: Absolute Lymphocyte Count 1.74 X10^3/uL (0.83-4.51); Basophil# 0.05 X10^3/uL; Basophil% 0.7 % (0-1); Eosinophil# 0.52 X10^3/uL; Eosinophils% 7.3 % (0-5); Hemoglobin 15.9 g/dL (13.0-16.5); Lymphocyte # 1.74 X10^3/ul (0.83-4.51); Lymphocyte % 24.4 % (19-41); Mean Corp Hgb Conc 33.1 g/dL (32-36); Mean Corpuscular Volume 90.6 fL (80-94); Mean Platelet Vol. 10.9 fl (6.2-12.0); Monocyte# 0.79 X10^3/uL; Monocyte% 11.1 % (0-10); NRBC Flagged by Analyzer 0 % (0-5); Neutrophil # 4.02 X10^3/uL (2.7-7.7); Neutrophil % 56.4 % (47-70); Platelet Count 289 K/mm3 (150-450); RBC Distribution Width CV 13.7 % (11.6-14.6); RBC Distribution Width SD 45.8 fl (35.1-43.9); White Blood Count 7.1 K/mm3 (4.4-11.0)
[2023-11-11 07:41] LABS: Anion Gap 5 (5-15); BUN 10 mg/dL (7-18); BUN/Creat Ratio 19.7 RATIO (10-20); Calcium,Total 9.4 mg/dL (8.5-10.1); Chloride 103 mmol/L (98-107); Creatinine, Serum 0.51 mg/dL (0.70-1.30); EST Glomerular Filtration Rate 173 mL/min (>60); Est Glom Filt Rate - Afr Amer 209 mL/min (>60); Estimated Creatinine Clearance 112.25 ml/min; Glucose 109 mg/dL (74-106); Potassium 3.5 mmol/L (3.5-5.1); Sodium Level 138 mmol/L (136-145)
[2023-11-11 09:47] VITALS: BP 134/79; PULSE 82; RESP 20; TEMP 36.6; O2SAT 98
[2023-11-11] MEDS: Enoxaparin 40 MG/0.4 ML Syringe SC (09:53)
[2023-11-11] MEDS: Menthol/Lanolin/Calamine/Znox 113 GM Tube 1 APPLIC TOPICAL (09:59)
--- NOTE | 2023-11-11 11:00 | NURSING ---
Pt bathed by DISTRIBUTION CLERK and This RN. This RN went to reposition pt to his Rt side and pt refused as he said he was comfortable at this time.
[2023-11-11 11:01] VITALS: O2SAT 93
--- NOTE | 2023-11-11 11:01 | CASEMGMT ---
Discharge Planning SL has obtained auth to admit. SW updated. Cary Barrera DC Planinjorden Asst.
--- NOTE | 2023-11-11 11:12 | TREXTCAR_ITS ---
Diet Diet Order/Speech Therapy: 11/09/23 08:57 Diet: Regular - General Routine Orders/Code Status Enema Type: Fleetz Enema Frequency: Daily PRN Suppository Type: Dulcolax 10mg Suppository Frequency: Daily PRN O2 Frequency: PRN Keep PO Greater than or Equal to (%): 90 Wound(s) Buttocks: Wound Type: Pressure Injury BL elbows: Wound Type: Abrasion ABD: Wound Type: Burn BLE: Wound Type: scabbing Side of right index finger: Wound Type: blister right mid back (superior): Wound Type: Pressure Injury Dressing Change: applied foam dressing right mid back (inferior): Wound Type: Pressure Injury Dressing Change: foam dressing Therapies Weight Bearing: Weight bearing as tolerated Physical Therapy: Eval and Treat Occupational Therapy: Eval and Treat Problem/Diagnosis (1) Lower extremity weakness: Status: Acute Code(s): R29.898 - Other symptoms and signs involving the musculoskeletal system (2) Paresthesias: Status: Acute Code(s): R20.2 - Paresthesia of skin Plan #Debility due to lower extremity weakness due to severe spinal stenosis * Still complains of lower extremity weakness. Still denies any numbness or tingling or any urinary or fecal incontinence. * CT of the lumbar spine showed severe lumbar stenosis. MRI ordered but patient has adamantly refused and says he thinks the CT and the x-ray are adequate. * Spine surgery consulted. Spine surgery did see patient yesterday and per their documentation counseled patient that there were concerned about cervical myelopathy and that an MRI would be beneficial. Patient still refused. * Patient informed of the orthospine PA that he wished to do his own research for its and preferred to do more CT scans or x-rays. No surgical recommendations can therefore be made at this time without an MRI. * PT OT on board. Fall precautions. * P.o. Tylenol and hydrocodone as well as IV morphine as needed for pain. #Stage I pressure ulcer: Wound care on board. PT OT on board. #Hypoxia: * Patient on 2 L of oxygen today. * He likely has underlying COPD and he does have a long history of smoking. * Breathing treatments bronchodilators. * Titrate oxygen to maintain saturation above 90%. * # Nicotine dependence: Smokes 1 pack daily. Counseled to quit. Nicotine patch and nicotine gum. #Osteoarthritis: On Tylenol as needed #Obesity: BMI is 34.7. Complicates acute care, expected recovery and prognosis. DVT prophylaxis: Lovenox. * Patient refusing Lovenox and states he wants an oral pill for DVT prophylaxis. * Patient counseled that Lovenox or heparin are the preferred modalities for DVT prophylaxis in the hospital. He was counseled that the Lovenox is only 1 shots daily and like the heparin which is 3 times daily. * Patient states he would prefer to take lemon because his research shows that lemon prevents DVT. * I counseled him that I was not aware of this information but it would be beneficial for him to take the Lovenox for DVT prophylaxis. Patient states he is not willing to think about it. Disposition: awaiting placement. Allergies/Procedures Done in Hospital Allergies No Known Allergies Allergy (Verified 11/07/23 17:01) Procedures: None Type of Care/Length of Stay Estimated LOS: Convalescent Care Less Than 30 days Type of Care Needed: Skilled Rehab Potential: Fair Prognosis: Fair Additional Orders/Day of Discharge Day of Discharge: 11/11/23 Discharge Plan Admission Admit Date/Time: 11/07/23 21:39 Primary Reason for Your Visit: lower extremity weakness, pain Attending Provider: Tierra Chandler Primary Care Provider: Kwame Hanson Consulting Providers: Ovi Valencia; Pilo Echevarria; Madyson Mathis Instructions Patient Instructions: ED FALL-from [facility] Discharge Orders/Prescriptions Prescriptions: New hydrocodone-acetaminophen 5-325 mg Tablet 1 tab PO Q6H PRN PRN (Reason: Pain Score 6-10) 3 Days Qty: 12 0RF Referrals / Follow Up: Kwame Hanson MD [Primary Care Provider] - Within 1 Week Care Physician,No Primary [Non-Staff] - Disposition Disposition (needs filled in before D/C Order can be placed): [facility] Facility (1) Lower extremity weakness Qualifiers: Laterality: bilateral Qualified Code(s): R29.898 - Other symptoms and signs involving the musculoskeletal system
--- NOTE | 2023-11-11 11:14 | DS.PCM_ITS ---
Providers Date of Admission: 11/07/23 Date of Discharge: 11/11/23 Primary Care Physician: Dr. Kwame Hanson MD Consultations 11/07/23 22:49 Consult: Onc/Wound/truer pinion and wheel Routine Comment: Reason for Consult:: Stage I-II pressure ulcers around coccyx. 11/08/23 18:58 Consult: Orthopedics Routine Consulting Provider: Pilo Echevarria Reason for Consult: severe central canal stenosis with leg weakness EMERGENT Consult: No MD Notified: Yes Date Notified: 11/08/23 Time Notified: 18:59 Method of Notification: Text Reason For Visit: GENERALIZED WEAKNESS WITH AMBULATORY DYSFUNCTION Diagnosis Discharge Diagnosis (1) Lower extremity weakness: Status: Acute Code(s): R29.898 - Other symptoms and signs involving the musculoskeletal system Qualifiers: Laterality: bilateral Qualified Code(s): R29.898 - Other symptoms and signs involving the musculoskeletal system (2) Paresthesias: Status: Acute Code(s): R20.2 - Paresthesia of skin Plan #Debility due to lower extremity weakness due to severe spinal stenosis * Still complains of lower extremity weakness. Still denies any numbness or tingling or any urinary or fecal incontinence. * CT of the lumbar spine showed severe lumbar stenosis. MRI ordered but patient has adamantly refused and says he thinks the CT and the x-ray are adequate. * Spine surgery consulted. Spine surgery did see patient yesterday and per their documentation counseled patient that there were concerned about cervical myelopathy and that an MRI would be beneficial. Patient still refused. * Patient informed of the orthospine PA that he wished to do his own research for its and preferred to do more CT scans or x-rays. No surgical recommendations can therefore be made at this time without an MRI. * PT OT on board. Fall precautions. * P.o. Tylenol and hydrocodone as well as IV morphine as needed for pain. #Stage I pressure ulcer: Wound care on board. PT OT on board. #Hypoxia: * Patient on 2 L of oxygen today. * He likely has underlying COPD and he does have a long history of smoking. * Breathing treatments bronchodilators. * Titrate oxygen to maintain saturation above 90%. * # Nicotine dependence: Smokes 1 pack daily. Counseled to quit. Nicotine patch and nicotine gum. #Osteoarthritis: On Tylenol as needed #Obesity: BMI is 34.7. Complicates acute care, expected recovery and prognosis. DVT prophylaxis: Lovenox. * Patient refusing Lovenox and states he wants an oral pill for DVT prophylaxis. * Patient counseled that Lovenox or heparin are the preferred modalities for DVT prophylaxis in the hospital. He was counseled that the Lovenox is only 1 shots daily and like the heparin which is 3 times daily. * Patient states he would prefer to take lemon because his research shows that lemon prevents DVT. * I counseled him that I was not aware of this information but it would be beneficial for him to take the Lovenox for DVT prophylaxis. Patient states he is not willing to think about it. Disposition: awaiting placement. Medications at Discharge Home Medications hydrocodone-acetaminophen 5-325mg 5mg-325mg 1 tab PO Q6H PRN PRN Pain Score 6-10 3 days #12 tabs 11/11/23 Hospital Course Operations None Procedures None Summary of Care Provided Minutes Spent on Discharge: 45 Hospital Course: Patient is a 68-year-old male with an extensive past medical history as outlined was admitted through the ED on 11/07/2023 with a complaint of weakness and debility. He said he not be able to get out of his chair at all for about a week. He was found by his daughter in a chair full of urine and excrement so EMS was called. His house was apparently in complete disarray and patient was very disheveled. He was noted to have stage II pressure ulcers and severe tenia as well. There was concern about patient's ability to care for himself and so he was admitted for placement. She was admitted and managed for debility and weakness with failure to thrive and also managed for stage II pressure ulcers which were present on admission as well as suprapubic candidiasis. He complained of some lower extremity weakness and possible numbness and tingling. Orthospine surgery was consulted. He did have CT of the lumbar spine which showed severe spinal stenosis. An MRI was ordered and Ortho spine was consulted. Patient was however adamant that he would not have the MRI instead as well as was concerned x-rays and CTs were as good as MRI. Orthospine surgery saw him and stated that there was nothing else they could do as patient was not willing to have an MRI for them to get better delineation of his lumbar spine. Patient also refused to take subcu Lovenox and said he preferred to take lemon juice which according to him helped with anticoagulation. Patient will was discharged to alf facility on 11/11/2023. He is follow-up with his primary care doctor within 1 to 2 weeks. He was given a script for PO hydrocodone/acetaminophen 5 325 mg take 1 tablet daily 6 hours for total of 12 tablets for 3 days. OARRS score was checked and no red flags were seen. Patient seen and examined prior to discharge. He had no active complaints and had an uneventful night. Review of systems otherwise negative. Labs and vitals reviewed. Home medication reviewed and reconciled. Physical Exam Const alert, oriented x3, no apparent distress and well nourished; Negative for average body habitus or healthy appearing Constitutional Narrative: obese General Appearance: cooperative, comfortable and well kempt Orientation / Consciousness: awake HEENT normocephalic, head/scalp atraumatic, hearing grossly normal bilaterally, moist oral mucous membranes and oropharynx normal Mouth: oral and palatal mucosa normal Eyes PERRL, EOMs intact bilaterally and conjunctivae normal Neck no lymphadenopathy, supple and no JVD Lymph Lymphatic: no lymphadenopathy noted and no lymphedema noted Resp normal respiratory effort, no retractions and no use of accessory muscles Resp Narrative: mildly diminished breath sounds bibasally, no wheezes or crackles. On room air. Auscultation: wheezes; Negative for rales or rhonchi Cardio regular rate, regular rhythm, S1 normal heart sound, S2 normal heart sound, no murmurs, no rub, no gallops and no clicks GI normal to inspection, nondistended, normoactive bowel sounds, soft to palpation, non-tender and non-distended GI Narrative: obese abdomen Extremity normal to inspection, full ROM, normal capillary refill, no clubbing, cyanosis or edema and no calf tenderness General Extremity: no tenderness to palpation of joints or extremities Skin Skin Narrative: Patient has Emma to her suprapubic area and stage I-II pressure ulcers on his buttocks and coccyx with multiple areas of abrasions. General Skin Exam: no breakdown Neuro oriented x3, CN's II-XII intact bilaterally, moves all extremities, no focal motor deficits, no sensory deficits noted and deep tendon reflexes 2+ bilaterally Sensorium / Orientation: awake, alert, oriented to person, oriented to place and oriented to time Speech: speech normal Motor Exam: strength 5/5 throughout and general weakness Psych thought process normal, cooperative and affect normal Psych Narrative: Very pleasant, interacts appropriately Appearance: appropriate Weight / BMI Weight Weight: 253 lb 8.505 oz Body Mass Index (BMI) 36.3 ABG / Lab / Microbiology Data 11/11/23 05:48 11/11/23 05:48 Laboratory: Laboratory Results - last 24 hr 11/11/23 05:48: WBC 7.1, RBC 5.30, Hgb 15.9, Hct 48.0, MCV 90.6, MCH 30.0, MCHC 33.1, RDW Std Deviation 45.8 H, RDW Coeff of Annamarie 13.7, Plt Count 289, MPV 10.9, Immature Gran % (Auto) 0.100, Neut % (Auto) 56.4, Lymph % (Auto) 24.4, [place] % (Auto) 11.1 H, Eos % (Auto) 7.3 H, Baso % (Auto) 0.7, Absolute Neuts (auto) 4.0, Absolute Lymphs (auto) 1.74, Nucleated RBC % 0, Sodium 138, Potassium 3.5, Chloride 103, Carbon Dioxide 30.0, Anion Gap 5, BUN 10, Creatinine 0.51 L, Estim Creat Clear Calc 112.25, Est GFR (MDRD) Af Amer 209, Est GFR (MDRD) Non-Af 173, BUN/Creatinine Ratio 19.7, Glucose 109 H, Calcium 9.4 Microbiology: Microbiology 11/07/23 18:10 Mucosa - Nose SARS-CoV-2, Influenza & RSV (PCR) - Final D/C Instructions Discharge Diet: Low fat / Low cholesterol Discharge Activity: Return to Normal Activity Weight Bearing Status: Weight bearing as tolerated Call your doctor if you observe: Fever of 101 or Higher, Shortness of breath, Dizziness and Chest pain Meaningful Use Info Meaningful Use Meaningful Use Diagnoses (Choose all that apply): None applicable Ischemic Stroke Statin Dosing Therapy Reference: STATIN DOSE THERAPY REFERENCE: * Patients > 75 years receive moderate or high dose statin therapy. * Patients 75 years or YOUNGER should receive HIGH intensity statin dose unless contraindicated. You will be required to document reason for non-treatment if statin daily dose does not meet guidelines. HIGH DOSE STATIN THERAPY DAILY Atorvastatin > than or = to 40 mg Rosuvastatin > than or = to 20 mg Amlodipine + Atorvastatin > than or = to 2.5/40 mg Ezetimibe + Simvastatin 10/80 mg Simvastatin 80mg Discharge Plan Admission Admit Date/Time: 11/07/23 21:39 Primary Reason for Your Visit: lower extremity weakness, pain Attending Provider: Tierra Chandler Primary Care Provider: Kwame Hanson Consulting Providers: Ovi Valencia; Pilo Echevarria; Madyson Mathis Instructions Patient Instructions: ED FALL-from [id number] Discharge Orders/Prescriptions Prescriptions: New hydrocodone-acetaminophen 5-325 mg Tablet 1 tab PO Q6H PRN PRN (Reason: Pain Score 6-10) 3 Days Qty: 12 0RF Referrals / Follow Up: Kwame Hanson MD [Primary Care Provider] - Within 1 Week Care Physician,No Primary [Non-Staff] - Disposition Disposition (needs filled in before D/C Order can be placed): [facility] Facility Charges/Coding Visit Charges Inpatient E&M: 23302 Disch Hosp >30min
--- NOTE | 2023-11-11 12:00 | CASEMGMT ---
Social Work Precert has been obtained for pt to admit to [facility]. Physician notified and pt is ready for dc on this date. 7000 exemption form completed in [facility]. DC restaurant assistant updated and to complete discharge. Disposition: [facility], skilled level of care under convalescent stay BREANNE Black
--- NOTE | 2023-11-11 12:17 | CASEMGMT ---
Discharge Planning Discharge orders, signed med list, and transport time [facility] will transport patient by cot at 1p. Nursing, SW, and patient updated. Patient stated that he would updated his daughter. Cary Barrera DC Planning Asst.
[2023-11-11 12:41] VITALS: BP 136/76; PULSE 82; RESP 18; TEMP 36.9; O2SAT 95
--- NOTE | 2023-11-11 13:01 | NURSING ---
Report given to Kai at [facility].
== END 2023-11-11 13:31 | disposition skilled nursing facility (03) ==
LOC: ED 19:24 → MS3 21:47
PROVIDERS: Internal Medicine; Nurse Practitioner; Admitting Provider Internal Medicine; Emergency Provider Surgery; PCP Family Medicine; Visit Provider Student in an Organized Health Care Education/Training Program
DX: M48.061 Spinal stenosis, lumbar region without neurogenic claudication (principal); L89.312 Pressure ulcer of right buttock, stage 2; L89.152 Pressure ulcer of sacral region, stage 2; L97.322 Non-pressure chronic ulcer of left ankle with fat layer exposed; M47.10 Other spondylosis with myelopathy, site unspecified; R53.81 Other malaise; F17.210 Nicotine dependence, cigarettes, uncomplicated; I10 Essential (primary) hypertension; R62.7 Adult failure to thrive; R32 Unspecified urinary incontinence; Z59.19 Other inadequate housing; R20.2 Paresthesia of skin; E66.9 Obesity, unspecified; Z68.36 Body mass index [BMI] 36.0-36.9, adult; R53.1 Weakness; B37.2 Candidiasis of skin and nail; R09.02 Hypoxemia; M19.90 Unspecified osteoarthritis, unspecified site
CPT/HCPCS: 36415; 70450; 71045; 72131; 80048; 80053; 81001; 82550; 82607; 82746; 83605; 83690; 83735; 84100; 84443; 84484; 85025; 85027; 87631; 93005; 94640; 94668; 96360; 96361; 96372; 97110; 97162; 97166; 97530; 97537; 99221; 99284; 99406; J7030; A4216; G0378